=== PATIENT | male | born 1970 | race Two or more races ===

== ENCOUNTER 2020-07-08 20:43 | Emergency (ER) | payer MEDICAID, OTHER ==
[~2020-07-08] VITALS: Ht 177.8 cm; Wt 93.0 kg
[2020-07-08] MEDS ORDERED: HYDROcodone-ACET 7.5/325MG TAB PO ONE (21:00)
[2020-07-08] MEDS ORDERED: PIPERACILLIN-TAZO 4.5GM 100 ML IV ONE (21:30)
[2020-07-08] MEDS ORDERED: metroNIDAZOLE 500MG/100ML 100 ML IV ONE (21:30)
[2020-07-08] MEDS ORDERED: VANCOMYCIN IV ONE ×2 (21:30)
[2020-07-08] MEDS ORDERED: D5W IV ONE ×2 (21:30)
[2020-07-08] MEDS ORDERED: SODIUM CHLORIDE 0.9% 2,000 ML IV ONE (21:45)
[2020-07-08 21:48] LABS: Basophils # (auto) 0.1 10 ^3/uL (0-0.2); Eosinophils # (auto) 0.1 10 ^3/uL (0-0.8); Hemoglobin 17.3 g/dL (13.5-17.5); Lymphocytes # (auto) 1.7 10 ^3/uL (0.4-5.4); Lymphocytes % (auto) 24.7 % (10.0-50.0); Mean Corpuscular Hemoglobin 29.8 pg (28.0-32.0); Mean Corpuscular Hgb Conc. 33.9 g/dL (32.0-36.0); Mean Corpuscular Volume 87.8 fL (80.0-100.0); Monocytes # (auto) 0.6 10 ^3/uL (0-1.3); Monocytes % (auto) 8.1 % (0.0-12.0); Neutrophils # (auto) 4.5 10 ^3/uL (1.6-8.6); Neutrophils % (auto) 64.2 % (37.0-80.0); Nucleated Red Blood Cells % 0.5 %; Red Cell Distribution Width 12.8 % (11.8-14.3)
[2020-07-08] MEDS ORDERED: VANCOMYCIN 1,500 MG in D5W 5% 250 ML IV ONE (22:00)
[2020-07-08 22:04] LABS: Albumin 3.4 g/dL (3.4-5.0); Calcium 8.8 mg/dL (8.5-10.1); Potassium 4.3 mmol/L (3.5-5.1)
[2020-07-08 22:13] LABS: BUN/Creatinine Ratio 15.5; Bilirubin, Total 0.3 mg/dL (0.2-1.0); Total Protein 8.4 g/dL (6.4-8.2)
[2020-07-08] MEDS ORDERED: DEXTROSE (50%) 50ML SYRG IV PRN (23:15)
[2020-07-09] MEDS ORDERED: InsuLIN REG 1unit/0.01ml Soln (100units/ml) SC SCH
[2020-07-09] MEDS ORDERED: ACCU-CHEK COMFORT CURVE STRIP VI SCH
[2020-07-09 02:17] VITALS: BP 160/75
== END 2020-07-09 02:36 | disposition short-term general hospital (02) ==
LOC: ER 20:49
DX: E11.621 Type 2 diabetes mellitus with foot ulcer (principal); L97.516 Non-pressure chronic ulcer of other part of right foot with bone involvement without evidence of necrosis; I96 Gangrene, not elsewhere classified; Z20.822 Contact with and (suspected) exposure to COVID-19
CPT/HCPCS: 36415; 73700; 80053; 82010; 82962; 85025; 85652; 87040; 87426; 96365; 96366; 96368; 96372; 99285; C9803; J2543; J3370; J3490; J7060; U0003

== ENCOUNTER 2021-11-18 12:24 | Emergency (ER) | payer MEDICAID, OTHER ==
[~2021-11-18] VITALS: Ht 177.8 cm; Wt 95.3 kg
[2021-11-18] MEDS ORDERED: TRAM-297 PO (14:36)
[2021-11-18] MEDS ORDERED: traMADol HCL 50 MG TAB PO ONE (14:45)
[2021-11-18 14:48] VITALS: BP 141/78
== END 2021-11-18 15:21 | disposition home or self-care (01) ==
LOC: ER 12:24
DX: G89.4 Chronic pain syndrome (principal); M79.672 Pain in left foot; M79.671 Pain in right foot; E11.40 Type 2 diabetes mellitus with diabetic neuropathy, unspecified; Z79.899 Other long term (current) drug therapy

== ENCOUNTER → 2022-01-01 | Emergency (ER) | payer MEDICAID, OTHER ==
[~2022-01-01] MED LIST: ALBUAER3 IN; AZITTAB PO; PRED20TA2 PO; TRAM-297 PO
== END | disposition left against medical advice (07) ==
LOC: ER 22:06
DX: R05.9 Cough, unspecified (principal); Z53.21 Procedure and treatment not carried out due to patient leaving prior to being seen by health care provider

== ENCOUNTER 2022-01-03 19:35 | Emergency (ER) | payer OTHER ==
[~2022-01-03] VITALS: Ht 177.8 cm; Wt 200.0 kg
[~2022-01-03 19:35] MED LIST changes: -ALBUAER3 IN; -AZITTAB PO; -PRED20TA2 PO
[2022-01-03 22:00] LABS: Basophils # (auto) 0.1 10 ^3/uL (0-0.2); Basophils % (auto) 0.6 % (0.0-2.0); Eosinophils # (auto) 0.1 10 ^3/uL (0-0.8); Eosinophils % (auto) 0.9 % (0.0-7.0); Hematocrit 48.4 % (41.0-53.0); Hemoglobin 16.2 g/dL (13.5-17.5); Lymphocytes # (auto) 1.9 10 ^3/uL (0.4-5.4); Lymphocytes % (auto) 16.9 % (10.0-50.0); Mean Corpuscular Hemoglobin 28.7 pg (28.0-32.0); Mean Corpuscular Hgb Conc. 33.5 g/dL (32.0-36.0); Mean Corpuscular Volume 85.5 fL (80.0-100.0); Monocytes # (auto) 0.8 10 ^3/uL (0-1.3); Monocytes % (auto) 7.1 % (0.0-12.0); Neutrophils # (auto) 8.4 10 ^3/uL (1.6-8.6); Neutrophils % (auto) 74.5 % (37.0-80.0); Nucleated Red Blood Cells % 0.1 %; Red Blood Cells 5.66 10^6/uL (4.5-5.90); Red Cell Distribution Width 12.9 % (11.8-14.3); White Blood Cell 11.3 10^3/uL (4.4-10.8)
[2022-01-03 22:24] LABS: Calcium 8.7 mg/dL (8.5-10.1); Potassium 4.1 mmol/L (3.5-5.1)
[2022-01-03 22:32] LABS: Albumin 2.9 g/dL (3.4-5.0); Total Protein 8.6 g/dL (6.4-8.2)
[2022-01-03 22:37] LABS: Bilirubin, Total 0.6 mg/dL (0.2-1.0)
[2022-01-03 22:44] LABS: BUN/Creatinine Ratio 21.6
[2022-01-03] MEDS ORDERED: ALBUTEROL SULF 2.5 MG/0.5ML(0.5%) NEB SOLN NEB ONE (23:00)
[2022-01-03] MEDS ORDERED: IPRATROPIUM BROM 0.5 MG/2.5ML INH SOL NEB ONE (23:00)
[2022-01-03] MEDS ORDERED: PRED20TA2 PO (23:26)
[2022-01-03] MEDS ORDERED: ALBUAER3 IN (23:26)
[2022-01-03] MEDS ORDERED: AZITTAB PO (23:26)
[2022-01-03 23:54] VITALS: BP 117/63
== END 2022-01-03 23:54 | disposition home or self-care (01) ==
LOC: ER 19:36
DX: J40 Bronchitis, not specified as acute or chronic (principal); Z20.822 Contact with and (suspected) exposure to COVID-19
CPT/HCPCS: 36415; 71046; 80053; 82962; 83605; 83880; 84484; 85025; 87426; 87804; 94640; 99284; J7644